=== PATIENT | female | born 1980 | race Caucasian/White ===

== ENCOUNTER 2016-12-05 23:27 | Emergency (ER) | payer OTHER ==
[~2016-12-05] VITALS: Ht 170.2 cm; Wt 72.7 kg
[2016-12-05 23:31] VITALS: BP 117/85; PULSE 85; RESP 25; O2SAT 100
[2016-12-06 00:46] LABS: BASOPHILS % (AUTO) 0.1 % (0-3); EOSINOPHILS % (AUTO) 0.9 % (0-5); MONOCYTES % (AUTO) 8.8 % (4-12); Mean Corpuscular Hemoglobin 30.5 pg (27.0-35.0); NEUTROPHILS % (AUTO) 55.3 % (40-74); Platelet Count 270 bil/L (150-400)
[2016-12-06 01:08] LABS: Magnesium 1.7 mg/dL (1.6-2.6); TROPONIN T 0.01 ug/L (0.0-0.011)
--- NOTE | 2016-12-06 02:24 | ED.REPORT ---
HPI-Dyspnea / Wheezing Date of Service December 06, 2016 ED Provider: Martin Chery MD Pt is a 36 year old female with a hx of appy and IUD presenting to the ED complaining of SOB onset yesterday night. Associated symptoms include LE swelling, tenderness in bilateral calves, chest pain, and epistaxis 2 days ago. Pt recently travelled from [facility] to [place] by plane, but was swollen before the flight. Nursing Notes Stated Complaint: TROUBLE BREATHING Chief Complaint: Respiratory Complaints Nursing Notes Reviewed: Yes Allergies: Coded Allergies: No Known Allergies (Unverified Allergy, Unknown, 12/05/16) Uncoded Allergies: AMOX/CLAV (Allergy, Unknown, 12/05/16) Scheduled Hydrochlorothiazide (Hydrochlorothiazide) 12.5 Mg Capsule 12.5 MG PO DAILY General Time Seen by MD: 01:50 Chief Complaint Shortness of breath Hx Obtained From: Patient Arrived By: Walk-in Sudden in Onset?: No Onset Occurred: Yesterday Symptom Duration: Since onset Severity: Current: No pain currently Severity: Maximum: Mild Recent Healthcare: No recent doctor visit, No recent hospitalization Similar Sx Previous: No Past Medical History Past Medical History denies Past Surgical History denies Smoking History Unknown if Ever Smoker Ambulatory Status Independent Review of Systems Ears / Nose / Throat: Reports: Nose bleeding Respiratory: Reports: Shortness of breath Cardiovascular: Reports: Chest pain Musculoskeletal: Reports: Extremity swelling Complete sys rev & neg: except as marked. Physical Exam Initial Vital Signs Vital Signs (First) Date Time Temp Pulse Resp B/P Pulse Ox O2 Delivery O2 Flow Rate FiO2 12/05/16 23:31 36.5 85 25 117/85 100 Room Air Initial VS: Reviewed, Vital signs normal Head / Eyes: Atraumatic, Normocephalic, PERRL ENT: Mucous membranes moist, Conjunctiva normal, No scleral icterus Abdomen / GI: Soft, Non-tender, No guarding, No rebound, No distention Back: No CVA tenderness Skin: Warm, Dry, No cyanosis Neurologic: Alert, Oriented, Nonfocal Psychiatric: Mood/affect normal, Behavior normal, Normal thought content Respiratory / Chest: Breath sounds NL, Breath sounds = bilat, No respiratory distress, No rales, No rhonchi, No wheezing, No retractions, No stridor Cardiovascular: Heart rate NL, Regular rhythm, Heart sounds NL, Peripheral circulation NL Lower Extremity / Pelvis / MS: Full range of motion, Neurologic intact, Vascular intact Trace bilateral 1+ pitting edema Interpretation & Diagnostics Lab Results Interpretation Result Diagram: 12/05/16 2356 12/05/16 2356 Test 12/05/16 23:36 12/05/16 23:56 12/06/16 00:01 12/06/16 00:38 Hold Purple Top Tube Received (Received) Hold Blue Top Tube Received (Received) Hold [place] Top Tube Received (Received) Hold [place] Top Tube Received (Received) White Blood Count 9.0th/mm3 (3.8-10.1) Red Blood Count 4.00mil/mm3 (3.90-5.20) Hemoglobin 12.2g/dL (12.0-15.6) Hematocrit 36.0% (35.0-46.0) Mean Corpuscular Volume 90.0fL (81-100) Mean Corpuscular Hemoglobin 30.5pg (27.0-35.0) Mean Corpuscular Hemoglobin Concent 33.9% (32.0-37.0) Red Cell Distribution Width 12.7% (12.3-15.4) Platelet Count 270bil/L (150-400) Neutrophils (%) (Auto) 55.3% (40-74) Lymphocytes (%) (Auto) 34.7% (14-46) Monocytes (%) (Auto) 8.8% (4-12) Eosinophils (%) (Auto) 0.9% (0-5) Basophils (%) (Auto) 0.1% (0-3) Sodium Level 140mEq/L (134-144) Potassium Level 3.7mEq/L (3.5-5.2) Chloride Level 104mEq/L (97-108) Carbon Dioxide Level 20mmol/L (18-29) Blood Urea Nitrogen 11mg/dL (6-20) Creatinine 0.58mg/dL (0.57-1.00) Estimat Glomerular Filtration Rate 169mL/min (>59) Glucose Level 111mg/dL (60-99) Calcium Level 9.1mg/dL (8.5-10.1) Magnesium Level 1.7mg/dL (1.6-2.6) Total Bilirubin 0.2mg/dL (0.0-1.2) Aspartate Amino Transf (AST/SGOT) 21U/L (0-50) Alanine Aminotransferase (ALT/SGPT) 14U/L (0-32) Alkaline Phosphatase 33U/L (25-150) Troponin T 0.010ug/L (0.0-0.011) Total Protein 6.6g/dL (6.4-8.4) Albumin 4.0g/dL (3.4-5.0) D-Dimer < 0.50mg/L FEU (<0.50) Pro-B-Type Natriuretic Peptide 157.5pg/mL (0-130) Hold Urine Received (Received) Lab values outside NL range: no clinical significance. Lab Results Interpretation: Normal troponin, d-dimer, BNP ECG Interpretation Time: 01:28 Interpreted by: ED physician Normal ECG Interpretation: Normal ECG w/ rate of... (75), Normal sinus rhythm X-Ray Chest Interpretation Chest Xray Interpretation: No acute findings. Interpretation / Wet Read by: Wet read ED physician Re-Eval/Medical Decision Med Decision/Clinical Course 36-year-old female with pleuritic chest pain, no evidence of serious cardiopulmonary disease. Re-Evaluation/Progress : Time of Eval: 02:38 Patient Status: Condition improved Re-Evaluation/Progress Note: Discussed lab results and plan for discharge. Counseled Regarding: Diagnosis, Lab results, Need for follow-up, When/why to return to ED Discharge & Departure Impression: Primary Impression: Leg edema Laterality: bilateral Qualified Code: R60.0 - Localized edema Disposition: Home Discharge Condition All VS Reviewed: Yes Condition: Improved Patient Instructions: Leg Edema (ED) Additional Instructions: The exact cause a your edema is uncertain at this time. There does not appear to be a serious cause. There is no evidence of blood clot, kidney disease, or heart disease. Recommend decrease salt intake, elevation of the legs as much as possible during the day, and 5 days of a diuretic. Hydrochlorothiazide 12.5 mg by mouth daily, #5 prescribed. See your regular doctor on Wednesday or Wednesday if you have persistent problems. Return to the emergency room if he get worse. Or call me at [phone] between the hours of 9 PM and 6 AM if you have any questions or concerns. Referrals: Talisha Miller (PCP) Scribe Attestation Portions of this note were transcribed by Jessica Hemphill. I, Dr. Chery personally performed the history, physical exam and medical decision-making; I reviewed and confirmed the accuracy of the information in the transcribed note. Signed by: Renaldo Kendrick, 12/06/2016 at 0256. copies to: Talisha Miller Howard L MD December 06, 2016 02:23 JESSICA HEMPHILL December 06, 2016 02:24
[2016-12-06] MEDS ORDERED: HYDR12.5 PO (02:44)
[2016-12-06 03:07] VITALS: BP 128/77; PULSE 79; RESP 16; O2SAT 98
--- NOTE | 2016-12-06 08:05 | DRSVH ---
PROCEDURE: X-RAY CHEST ONE VIEW, PORTABLE ([id number]) INDICATIONS: RESP TECHNIQUE: One view of the chest was acquired. COMPARISON: None. FINDINGS: Surgical changes and devices: None. Lungs and pleura: No pleural effusions or pneumothorax. Lungs are clear. Mediastinum: Mediastinal contours appear normal. Heart size is normal. Bones and chest wall: No suspicious bony lesions. Overlying soft tissues appear unremarkable. IMPRESSION: Normal chest radiograph. Dictated by: Matthew Dubon M.D. on 12/06/2016 at 8:03 Approved by: Matthew Dubon M.D. on 12/06/2016 at 8:04
== END 2016-12-06 03:00 | disposition home or self-care (01) ==
LOC: SED 23:27
DX: R60.0 Localized edema (principal); R07.81 Pleurodynia; R04.0 Epistaxis; Z97.5 Presence of (intrauterine) contraceptive device